=== PATIENT | female | born 1960 | race Two or more races ===

== ENCOUNTER 2017-01-25 11:14 | Inpatient (IN) | payer BC ==
[~2017-01-25 11:14] MED LIST: CEFAZOLIN 2 Gram 2 GM/50 ML BAG IVPB ONE; CELECOXIB 100 MG CAPSULE PO ONE; FAMOTIDINE 20MG TABLET PO ONE; MECLIZINE 25 MG TABLET PO ONE; METOCLOPRAMIDE 10 MG TABLET PO ONE; VANCOMYCIN HCL 1,000 MG in DEXTROSE 5 % IN WATER 250 ML IVPB ONE
[2017-01-25 11:44] LABS: ABO GROUP A; ANTIBODY SCREEN NEGATIVE (NEGATIVE); RH TYPE NEGATIVE
[2017-01-25] MEDS ORDERED: TRANEXAMIC ACID 1,000 MG/10 ML ML IV ONE ×2 (12:53→16:03)
[2017-01-25] MEDS ORDERED: 0.9 % SODIUM CHLORIDE 10 ML VIAL IVP ONE (12:53)
[2017-01-25] MEDS ORDERED: NALOXONE 0.4 MG/1 ML VIAL IVP PRN (14:59)
[2017-01-25] MEDS ORDERED: HYDROCODONE/APAP 10/325 TABLET PO PRN (14:59)
[2017-01-25] MEDS ORDERED: HYDROMORPHONE HCL 2 MG/ML VIAL IM PRN (14:59)
[2017-01-25] MEDS ORDERED: BISACODYL 10 MG SUPP RC PRN (14:59)
[2017-01-25] MEDS ORDERED: KETOROLAC 30 MG/ML VIAL IVP PRN ×2 (14:59)
[2017-01-25] MEDS ORDERED: ZOLPIDEM TARTRATE 5 MG TABLET PO PRN (14:59)
[2017-01-25] MEDS ORDERED: MAGNESIUM HYDROXIDE 30 ML UDC PO PRN (14:59)
[2017-01-25] MEDS ORDERED: AL HYDROX/MAG HYDROX 30ML UD PO PRN (14:59)
[2017-01-25] MEDS ORDERED: TRAMADOL HCL 50 MG TABLET PO PRN (14:59)
[2017-01-25] MEDS ORDERED: ACETAMINOPHEN W/ CODEINE 300MG/60MG TABLET PO PRN ×2 (14:59)
[2017-01-25] MEDS ORDERED: ACETAMINOPHEN 325 MG TAB PO PRN (14:59)
[2017-01-25] MEDS: ONDANSETRON HCL IV 4 MG/2 ML VIAL IVP PRN (15:57)
[2017-01-25] MEDS ORDERED: BUPIVACAINE 0.75% W/EPI MPF 30ML VIAL IVP ONE (16:03)
[2017-01-25] MEDS ORDERED: HYDROMORPHONE HCL 2 MG/ML VIAL IV ONE ×2 (16:11)
[2017-01-25] MEDS ORDERED: PROPOFOL 10 MG/ML VIAL IV ONE (16:11)
[2017-01-25] MEDS ORDERED: EPHEDRINE SULFATE 50 MG/ML ML IV ONE (16:11)
[2017-01-25] MEDS ORDERED: *PACU ONLY* KETAMINE HCL 10 MG/ML (20ML) VIAL IV ONE (16:11)
[2017-01-25] MEDS ORDERED: FENTANYL PF 100MCG/2ML VIAL IV ONE (16:11)
[2017-01-25] MEDS: DIPHENHYDRAMINE HCL 25 MG CAPSULE PO PRN ×2 (16:12→22:58)
[2017-01-25] MEDS: HYDROCODONE/APAP 10/325 TABLET PO PRN (18:44)
[2017-01-25] MEDS: POTASSIUM CHLORIDE/D5-0.9%NACL 20 MEQ/1,000 ML BAG IV SCH (18:44)
[2017-01-25] MEDS: CEFAZOLIN 2 Gram 2 GM/50 ML BAG IVPB SCH (22:23)
[2017-01-25] MEDS: DOCUSATE SODIUM 100 MG CAPSULE PO SCH (22:24)
[2017-01-26] MEDS: DIPHENHYDRAMINE HCL 25 MG CAPSULE PO PRN ×3 (03:32→23:01)
[2017-01-26] MEDS: CEFAZOLIN 2 Gram 2 GM/50 ML BAG IVPB SCH ×2 (04:53→12:25)
[2017-01-26] MEDS: ONDANSETRON HCL IV 4 MG/2 ML VIAL IVP PRN (05:51)
[2017-01-26] MEDS: HYDROCODONE/APAP 10/325 TABLET PO PRN ×4 (06:04→23:01)
[2017-01-26 06:58] LABS: HEMATOCRIT 37.6 % (35.0-47.0); HEMOGLOBIN 11.9 gm/dl (11.6-16.0)
[2017-01-26 07:09] LABS: BLOOD UREA NITROGEN 14 mg/dL (6-20); CREATININE 0.5 mg/dL (0.5-0.9); EST GLOMERULAR FILTRATION RATE > 60 mL/min; GLUCOSE,RANDOM 110 mg/dL (74-109)
[2017-01-26] MEDS: PANTOPRAZOLE SODIUM 40 MG TABLET PO SCH (07:10)
--- NOTE | 2017-01-26 08:43 | Rehab Evaluation ---
Patient Information - Patient Information Diagnosis: R ZEHRA Ordered Treatment: PT Evaluate and Treat Status: Initial Evaluation Surgery: Yes Date of Surgery: 01/25/17 Past Medical/Surgical Hx: PAST MEDICAL/SURGICAL HISTORY Past Surgical History hyst hernia repair nasal sx bladder sling PMH - Respiratory Hx Respiratory Disorders Yes Hx Bronchitis Yes Hx Pneumonia Yes Hx Sleep Apnea Yes: possibly in process of Hx of CPAP No PMH - Cardiovascular Hx Cardiovascular Disorders Yes Hx Hypertension Yes: on meds good control Exercise Tolerance Poor Comment: due to hip pain PMH - Neuro Hx Neurological Disorders Yes Hx Dizziness Yes: orthostatic PMH - GI Hx Gastrointestinal Disorders Yes Hx Gastroesophageal Reflux Yes: on meds good control PMH - Hx Genitourinary Disorders No Comment: s/p hyst PMH - Endocrine Hx Endocrine Disorders No PMH - Musculoskeletal Hx Musculoskeletal Disorders Yes Hx Arthritis Yes: right hip PMH - Psych Hx Psychiatric Problems No PMH - Hematology/Oncology Hx Hematology/Oncology No Disorders Premorbid Status: Detail (The patient was independent with all ambulation.) Social History: Detail (The patient lives with spouse in a two story home with an upstairs bedroom. The patient has 14 stairs to climb to bedroom with one railing and 2 small stairs with no railing at the enterance. The patient has a walk in shower with a seat and an elevated toilet. The patient has a standard walker and a standard cane.) Precautions: [place], Other (WBAT on the R LE) - Time With Patient Total Time Spent With Patient (Min): 30 Treatment Procedures: Detail (Initial Evaluation) Subjective Information - Subjective Information Per Patient (The patient had no complaints of pain.) Objective Data - Mental Status Patient Orientation: Oriented x3 - Visual Perception Appears within normal limits for therapeutic activities - ROM Not within normal limits (The patient's R Hip AROM is within limits of THR precautions, knee and ankle AROM are WNL. L LE AROM is WNL.) - Strength/Tone Not within normal limits (The patient's R LE strength was not formally tested secondary to status post surgery, however her strength is functional ie: patient can lift LE in and out of bed. The patient's L LE strength is generally 4+ to 5/5.) - Bed Mobility Independent (The patient was independent with supine to sit with verbal cues for proper technique.) - Transfers Independent (The patient was independent with sit to and from stand transfer.) - Balance Balance Sitting: Good Balance Standing: Good - Sensation Intact - Gait Detail (The patient ambulated with wheeled walker a distance of 50 feet x 1 with CG of 1 for safety WBAT on the R LE. The patient tended to turn R toe in but was able to correct positioning when verbally cued.) Therapy Assessment - Therapy Assessment Detail (The patient was independent with supine to sit and transfers, with CG for safety with ambulation. The patient declined stairs this am. The patient has 14 steps to climb to bedroom. Feel the patient will progress well.) Patient Education - Patient Education Teaching Topic: Exercise/Activity (R LE total hip exercises were reviewed and included: gluteal sets, ankle pumps, hamstring sets, quad sets, heel slides, hip abduction supine with assist. 5-10 reps with all exercises.), Precautions ( The patient was able to recall total hip precautions.) Response: Return Demonstration Teaching Method: Demonstration Teaching Recipient: Patient Barriers To Learning: None Problem List - Problem List Physical Therapy Problem List: Detail (1) Decreased R hip strength as to be expected following surgery. 2) Non ambulatory on stairs 3) Limited ambulation distance) Goals - Goals Physical Therapy Goals: 1) The patient will ambulate with supervision and assistive device on 7- 14 stairs with use of one railing. 2) The patient will be independent with ambulation on levels with assistive device WBAT on the R LE. 3)The patient will be independent with all transfers. Prognosis - Prognosis Good Plan - Plan Physical Therapy Plan: PT 1 to 2 times a day for gait training, transfer training, instruction in HEP.
[2017-01-26] MEDS: DOCUSATE SODIUM 100 MG CAPSULE PO SCH ×2 (10:32→22:59)
[2017-01-26] MEDS: ASPIRIN 81 MG TABEC PO SCH (10:32)
[2017-01-26] MEDS: HYDROCHLOROTHIAZIDE 25 MG TABLET PO SCH (10:33)
[2017-01-26] MEDS: FERROUS SULFATE 325 MG TAB PO SCH (10:33)
[2017-01-26] MEDS: BUPROPION HCL 150 MG TAB.SR.12H PO SCH (10:34)
[2017-01-26] MEDS: LOSARTAN POTASSIUM 100 MG TABLET PO SCH (10:34)
[2017-01-26] MEDS: RIVAROXABAN 10 MG TABLET PO SCH (10:35)
--- NOTE | 2017-01-26 11:55 | Rehab Evaluation ---
Patient Information - Patient Information Diagnosis: R ZEHRA Ordered Treatment: OT Evaluate and Treat Status: Initial Evaluation Surgery: Yes Date of Surgery: 01/25/17 Past Medical/Surgical Hx: PAST MEDICAL/SURGICAL HISTORY Past Surgical History hyst hernia repair nasal sx bladder sling PMH - Respiratory Hx Respiratory Disorders Yes Hx Bronchitis Yes Hx Pneumonia Yes Hx Sleep Apnea Yes: possibly in process of Hx of CPAP No PMH - Cardiovascular Hx Cardiovascular Disorders Yes Hx Hypertension Yes: on meds good control Exercise Tolerance Poor Comment: due to hip pain PMH - Neuro Hx Neurological Disorders Yes Hx Dizziness Yes: orthostatic PMH - GI Hx Gastrointestinal Disorders Yes Hx Gastroesophageal Reflux Yes: on meds good control PMH - Hx Genitourinary Disorders No Comment: s/p hyst PMH - Endocrine Hx Endocrine Disorders No PMH - Musculoskeletal Hx Musculoskeletal Disorders Yes Hx Arthritis Yes: right hip PMH - Psych Hx Psychiatric Problems No PMH - Hematology/Oncology Hx Hematology/Oncology No Disorders Premorbid Status: Detail (The patient was independent with all ambulation.) Social History: Detail (The patient lives with spouse in a two story home with an upstairs bedroom. The patient has 14 stairs to climb to bedroom with one railing and 2 small stairs with no railing at the enterance. The patient has a walk in shower with a built in seat, fixed shower head, no grab bars, and glass door enclosure. Pt has elevated toilet seat. The patient has a standard walker and a standard cane.) Precautions: [place], Other (WBAT on the R LE) - Time With Patient Total Time Spent With Patient (Min): 25 Treatment Procedures: Detail (OT eval low) Subjective Information - Subjective Information Per Patient (Pt expresses some fear over bending too far over 90 deg. She also verbalizes all over itchiness due to a reaction to medication.) Objective Data - Pain Pain Present: Yes Pain Intensity: 2 (R hip) Pain Scale Used: Numeric (1 - 10) - Mental Status Patient Orientation: Oriented x3 - Visual Perception Appears within normal limits for therapeutic activities - ROM Within normal limits (BUE's) - Strength/Tone Within normal limits (BUE's) - Coordination Appears within normal limits for therapeutic activities - Bed Mobility Independent (Pt very motivated to complete all tasks without assistance.) - Transfers Independent (sit <> stand t/f) - Balance Balance Sitting: Good - ADL's/IADL's Detail (Pt along with pt's spouse, was educated and demonstrated understanding of modified dressing techniques to allow adherence to hip precautions. Pt able to don/doff pants ind. while adhering to hip precautions using manager technical training. Pt was shown and educated on sock aid, LH shoe horn, and LH sponge. Pt lives with supportive spouse and pt's spouse states he will assist patient with pants don/ doff while at home and feels they would rather not purchase manager technical training at this time. Discussed locations where manager technical training could be purchased if patient changed her mind. Wound protection during bathing was also discussed.) Therapy Assessment - Therapy Assessment Detail (Pt's spouse will be assisting with dressing. Pt had demonstrated independence and safety with modified dressing techniques. No further inpatient OT needed at this time.) Patient Education - Patient Education Teaching Topic: Equipment Use Response: Return Demonstration Teaching Method: Discussion, Demonstration Teaching Recipient: Patient, Significant Other Barriers To Learning: None Problem List - Problem List Physical Therapy Problem List: Detail (1) Decreased R hip strength as to be expected following surgery. 2) Non ambulatory on stairs 3) Limited ambulation distance) Occupational Therapy Problem List: Detail (No inpatient OT problems at this time.) Goals - Goals Physical Therapy Goals: 1) The patient will ambulate with supervision and assistive device on 7- 14 stairs with use of one railing. 2) The patient will be independent with ambulation on levels with assistive device WBAT on the R LE. 3)The patient will be independent with all transfers. Occupational Therapy Goals: No inpatient OT goals at this time Prognosis - Prognosis Good Plan - Plan Physical Therapy Plan: PT 1 to 2 times a day for gait training, transfer training, instruction in HEP. Occupational Therapy Plan: No further inpatient OT needed at this time.
--- NOTE | 2017-01-26 17:12 | Physical Therapy Tx Note ---
Physical Therapy Tx Note - Treatment Note Tolerated: Good Total Time Spent With Patient: 20 Physical Therapy Tx Note: Detail (The patient ambulated on 15 steps with CG for safety with use of cane and one railing, WBAT on the R LE. The patient ambulated with wheeled walker independently 25 feet. The patient was independent with bed mobility. The patient did well and will practice climbing the steps tomorrow am prior to discharge.) Physical Therapy Problem List: Detail (1) Decreased R hip strength as to be expected following surgery. 2) Non ambulatory on stairs 3) Limited ambulation distance) Physical Therapy Goals: 1) The patient will ambulate with supervision and assistive device on 7- 14 stairs with use of one railing. 2) The patient will be independent with ambulation on levels with assistive device WBAT on the R LE. 3)The patient will be independent with all transfers. Physical Therapy Plan: PT 1 to 2 times a day for gait training, transfer training, instruction in HEP.
[2017-01-26] MEDS: POTASSIUM CHLORIDE/D5-0.9%NACL 20 MEQ/1,000 ML BAG IV SCH ×3 (19:46→19:51)
--- NOTE | 2017-01-26 20:39 | Discharge Summary ---
DATE OF ADMISSION: 01/25/17 DATE OF DISCHARGE: 01/27/17 DATE OF SURGERY: 01/25/17 HISTORY: Kala is a delightful 56-year-old female who presents with end-stage arthrosis of her right hip. She was admitted after right total hip arthroplasty. Postoperatively, she did great. Her hospital course was unremarkable. DISCHARGE INSTRUCTIONS: The plan is to discharge her to home in the care of her family. Home PT and Visiting Nurse have been arranged. She will be given Ultram for pain and Xarelto for DVT prophylaxis. Her Visiting Nurse will remove her sutures in two weeks. She will follow-up in my office in four weeks. FINAL DIAGNOSIS/PRIMARY DIAGNOSIS: END-STAGE ARTHROSIS OF THE RIGHT HIP. SECONDARY DIAGNOSIS: NONE. DISCHARGE HEMOGLOBIN WAS 11.9. OPERATIONS AND PROCEDURES: CEMENTLESS RIGHT TOTAL HIP ARTHROPLASTY. DISCHARGE CONDITION: GOOD. JOB NUMBER: [id number] [facility]
--- NOTE | 2017-01-26 21:16 | Operative Note ---
DATE OF SURGERY: 01/25/2017 PREOPERATIVE DIAGNOSIS: End-stage arthrosis of the right hip. POSTOPERATIVE DIAGNOSIS: End-stage arthrosis of the right hip. OPERATION: Cementless right total hip arthroplasty using [employer] components, with a size 50 no-hole Reflection cup, a highly cross-linked 32 mm diameter, 35 degree offset liner, a size 12 high offset cementless Hawley stem with a +0, 32 mm diameter Oxinium head. STAFF SURGEON: Dano Wyman MD ANESTHESIA: Spinal. PREPARATION: ChloraPrep. INDIVIDUAL CONSIDERATIONS: This is not a standard procedure. This lady had morbid obesity with body mass index above 40%. She had soft tissue envelope around her hip approaching 4 inches. This made dissection and closure and exposure more difficult. PROCEDURE: The patient was taken to the Operating Room and placed supine on the operating room table. She had a successful induction of spinal anesthetic. She was then placed on her side, right side up, and her right leg and hip were prepped and draped in the usual fashion. The patient had a direct posterior approach to the hip. Sharp dissection carried down through skin and subcutaneous tissue. Small veins were coagulated with a Bovie. The tensor gluteal fascia was opened along the entire length of the incision and deep retractors were placed. Short external rotators were identified at piriformis fossa and removed. A posterior capsulectomy was performed. The hip was dislocated posteriorly. She had bone loss and marginal osteophytes and loose bodies. A femoral neck cut was then made about a fingerbreadth above the lesser troch with an oscillating saw. A rim capsulectomy was performed. She had a shallow socket and I started with a 43 to get to the medial wall and then reamed to the introitus for a 49 for size 50 cup. I slightly under-reamed to 48. After irrigation, I impacted a size 50 no- hole Reflection cup in 40 degrees of abduction and 20 degrees of forward flexion using the extraarticular alignment guide and bony landmarks. There was solid cementless fixation. A center cap screw was placed and after irrigation, I impacted a 35 degree offset, 32 mm diameter liner with the offset essentially posteriorly. After irrigation, this was packed off. The proximal femur was delivered into the wound. A box-cutting osteotome was used to remove proximal metaphyseal bone. Mid-stem reaming was done to a size 12. I started feeling cortex at maybe 10 to 11. I broached to a 12. Anteversion was dialed in to about 25 to 30 degrees, which followed a natural anteversion angle. After calcar reaming with a high offset +0, I had absolute stability. The trial was removed. It was thoroughly irrigated and a size 12 high offset cementless Hawley stem was impacted with solid cementless fixation and solid calcar contact. After thorough irrigation, I dried the Chen taper, impacted a 32 mm diameter Oxinium head on the Chen taper and reduced the hip. I had absolute stability, full extension and external rotation. I flexed her up to her pedunculus and even internally rotated to 90 degrees, I had full stability. After irrigation, the sciatic nerve was inspected and found to be completely intact. Hemostasis was obtained with a Bovie. The tensioned gluteal fascia was then closed with a running #2 Quill. Deep to this, I mixed 1 g of tranexamic acid with 30 mL of saline and placed this deep in the fascia. She did receive 1 g of tranexamic acid IV. The subcu was closed in multiple layers of 0 Vicryl. The skin was closed with lin. I did infiltrate the skin and subcutaneous tissue with 30 mL 0.75% Marcaine with Epinephrine and a sterile Bulkee compressive Aquacel-type dressing was applied. The patient tolerated the procedure well. Needle and sponge counts were correct. Estimated blood loss was less than 200 mL and she was taken back to Recovery in good condition. There were no complications. JOB NUMBER: [id number] [facility]
[2017-01-27] MEDS: HYDROCODONE/APAP 10/325 TABLET PO PRN ×2 (04:54→10:32)
[2017-01-27 06:35] LABS: HEMATOCRIT 34.1 % (35.0-47.0)
[2017-01-27] MEDS: PANTOPRAZOLE SODIUM 40 MG TABLET PO SCH (06:48)
[2017-01-27 06:50] LABS: BLOOD UREA NITROGEN 16 mg/dL (6-20); CREATININE 0.5 mg/dL (0.5-0.9); EST GLOMERULAR FILTRATION RATE > 60 mL/min; GLUCOSE,RANDOM 101 mg/dL (74-109)
--- NOTE | 2017-01-27 09:54 | Physical Therapy Tx Note ---
Physical Therapy Tx Note - Treatment Note Tolerated: Good Total Time Spent With Patient: 40 Physical Therapy Tx Note: Detail (Patient states tired today, and right hip sore. Patient transferred supine to sit independently. Patient transferred sit to and from stand independently. Patient ambulated 13 feet with wheeled walker SBA x1. Patient transferred sit to and from stand independently. Patient ambulated 55 feet with wheeled walker SBA x1. Patient transferred sit to and from stand independently. Patient ascended and descended 15 steps with using stairwell railing and single point cane CGA x1. Patient transferred sit to and from stand independently. Patient transferred sit to supine independently. Patient scooted up in bed independently. Patient performed the following exercises x10 reps each: glut squeezes, quad sets, ankle pumps, supine hip abduction with assist, supine heel slides, and SLR with assist. Patient tolerated treatment well. Patient discharged from inpatient PT at this time due to pt has met all goals. Patient was left supine in bed with call light within reach.) Physical Therapy Problem List: Detail (1) Decreased R hip strength as to be expected following surgery. 2) Non ambulatory on stairs 3) Limited ambulation distance) Physical Therapy Goals: 1) The patient will ambulate with supervision and assistive device on 7- 14 stairs with use of one railing. 2) The patient will be independent with ambulation on levels with assistive device WBAT on the R LE. 3)The patient will be independent with all transfers. Prognosis: Good Physical Therapy Plan: Patient discharged from inpatient PT at this time. Patient has met all inpatient goals.
[2017-01-27] MEDS: BUPROPION HCL 150 MG TAB.SR.12H PO SCH (10:32)
[2017-01-27] MEDS: LOSARTAN POTASSIUM 100 MG TABLET PO SCH (10:33)
[2017-01-27] MEDS: ASPIRIN 81 MG TABEC PO SCH (10:33)
[2017-01-27] MEDS: FERROUS SULFATE 325 MG TAB PO SCH (10:33)
[2017-01-27] MEDS: DOCUSATE SODIUM 100 MG CAPSULE PO SCH (10:34)
[2017-01-27] MEDS: RIVAROXABAN 10 MG TABLET PO SCH (10:36)
[2017-01-27] MEDS: HYDROCHLOROTHIAZIDE 25 MG TABLET PO SCH (12:48)
== END 2017-01-27 13:00 | disposition home health service (06) | DRG 470 ==
LOC: MEDSURG 11:14
PROVIDERS: ADMIT Orthopaedic Surgery; ATTEND Orthopaedic Surgery
PROC: 0SR906A Replacement of Right Hip Joint with Oxidized Zirconium on Polyethylene Synthetic Substitute, Uncemented, Open Approach (ICD-10-PCS; principal; 2017-01-25 13:00)
DX: M16.11 Unilateral primary osteoarthritis, right hip (principal); E66.01 Morbid (severe) obesity due to excess calories; Z72.0 Tobacco use
CPT/HCPCS: 80048; 85014; 85018; 86850; 86900; 86901; 94760; 94761; 97110; 97165; 97530; J1885; J2405; J3480; J3490; J7060